=== PATIENT | male | born 1985 | race Caucasian/White ===

== ENCOUNTER 2016-12-29 09:32 | Day surgery (SDC) | payer OTHER ==
[2016-12-29 10:01] LABS: PROTHROMBIN TIME 12.7 SEC (11.4-15.4)
[2016-12-29 10:02] LABS: PARTIAL THROMBOPLASTIN TIME 33.9 SEC (23.5-35.8)
[2016-12-29 12:13] LABS: APPEARANCE ALL TUBES CLEAR; RBC DILUENT USED NONE USED; RBC DILUTION FACTOR 1; RBC SIDE 1 9; RBC SIDE 2 11; TOTAL RBC SQUARES COUNTED 225
[2016-12-29 12:14] LABS: WHITE BLOOD CELL,CSF 1 /uL (0-5)
[2016-12-29 12:16] LABS: GLUCOSE,CSF 57 mg/dL (40-70)
[2016-12-29 13:24] VITALS: BP 125/73
--- NOTE | 2016-12-29 13:30 | RADIOLOGY REPORT (SQ) ---
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 FLUOROSCOPY TIME: 10 seconds 2 digital radiographic images saved to PACS. TECHNIQUE: Fluoroscopic guided lumbar puncture. LIMITATIONS: None. PROCEDURE: After written consent and assessment were obtained, the patient was brought into the fluo roscopy room and placed prone on the table. The patient's lower back was prepped in a sterile fashio n and an entry site was selected under live fluoroscopic guidance. The entry site was anesthetized wi th 4 mL of 1% lidocaine. A 22 gauge needle was advanced through the skin and into the thecal sac at t he right paracentral L2-3 level. After approximately 9.5 ml was drained, the needle was removed and a sterile bandage was placed of the site. Specimens were sent to the lab for testing. A fluoroscopic spot image was saved to PACS confirming level access. FINDINGS: Clear CSF Normal opening pressure, 17 cm of water. Normal closing pressure, 11 cm of water. IMPRESSION: Lumbar puncture under fluoroscopy. No immediate complication. Specimens sent to the la b as per the patient's neurologist. COMMENT: Patient medication list reviewed: Yes- Quality ID# [id number]:Eligible professional attests to doc umenting in the medical record they obtained, updated, or reviewed the patient's current medications. . Quality ID [id number]: Final reports for procedures using fluoroscopy that document radiation exposure haydee oneal, or exposure time and number of fluorographic images (if radiation exposure indices are not avail able) TECHNICAL DOCUMENTATION: JOB ID: [id number] [employer]- All Rights Reserved
[2016-12-30 13:38] LABS: CSF IGG INDEX 0.4 (0.0-0.7); IGG SYNTHESIS RATE CSF -4.4 mg/day (-9.9 TO +3.3); IGG/ALBUMIN RATIO CSF 0.1 (0.00-0.25); IMMUNOGLOBULIN G CSF 1.3 mg/dL (0.0-8.6)
== END 2016-12-29 13:20 | disposition home or self-care (01) ==
LOC: RAD 09:32
PROVIDERS: ATTEND Nuclear Medicine
PROC: 009U3ZX Drainage of Spinal Canal, Percutaneous Approach, Diagnostic (ICD-10-PCS; principal; 2016-12-29)
DX: G35 Multiple sclerosis (principal); I10 Essential (primary) hypertension; F17.210 Nicotine dependence, cigarettes, uncomplicated
CPT/HCPCS: 36415; 62270; 77003; 82784; 82945; 83916; 84157; 85610; 85730; 87070; 87205; 89050